=== PATIENT | female | born 1985 ===

== ENCOUNTER 2017-09-23 01:18 | Emergency (ER) | payer MEDICAID ==
[2017-09-23 01:31] VITALS: RESP 17
--- NOTE | 2017-09-23 02:27 | ED PDOC ---
HPI: Female Pain Time Seen by Provider: 09/23/17 01:41 Chief Complaint (Nursing): Female Genitourinary Chief Complaint (Provider): Female Genitourinary History Per: Patient History/Exam Limitations: no limitations Onset/Duration Of Symptoms: Hrs (began Monday morning 09/22) Current Symptoms Are (Timing): Still Present Associated Symptoms: Nausea. denies: Fever, Vomiting, Urinary Symptoms Additional Complaint(s): 32 y/o female presents to the ED for evaluation of LLQ abdominal pain. Patient began to feel this pain this morning and when she attended the movies this evening, she went to use the toilet and upon wiping noticed an orange/red color on toilet paper prompting concern for vaginal bleeding. She is complaining of nausea that also began an hour prior to arrival in ED. Patient took at home test that came back positive this morning. She denies any fever, travel, chest pain, SOB, cough, vomiting, or urinary symptoms. P: 4 A:1. Patient states she has not had any care for this . LMP:08/22/2017 PMD:None provided Past Medical History Vital Signs: Last Vital Signs Temp 98 F 09/23/17 01:28 Pulse 80 09/23/17 01:28 Resp 17 09/23/17 01:28 BP 116/74 09/23/17 01:28 Pulse Ox 96 09/23/17 01:28 - Medical History PMH: Anxiety, Depression - Surgical History Other surgeries: Gastric Bypass - Family History Family History: States: Unknown Family Hx - Social History Current smoker - smoking cessation education provided: Yes (12 cigarettes per day) Alcohol: None Drugs: Denies - Home Medications Home Medications: Ambulatory Orders Medication Instructions Recorded Oseltamivir [Tamiflu] 75 mg PO BID #10 cap 06/28/17 21/Iron Fu/Folic Acid 1 each PO DAILY #30 tablet 09/23/17 [ Complete Caplet] - Allergies Allergies/Adverse Reactions: Allergies Allergy/AdvReac Type Severity Reaction Status Date / Time No Known Allergies Allergy Verified 09/23/17 01:28 Review of Systems ROS Statement: Except As Marked, All Systems Reviewed And Found Negative Constitutional: Negative for: Fever Gastrointestinal: Positive for: Nausea, Abdominal Pain (LLQ). Negative for: Vomiting Genitourinary Female: Positive for: Vaginal Bleeding. Negative for: Other ( urinary symptoms) Physical Exam - Reviewed Nursing Documentation Reviewed: Yes Vital Signs Reviewed: Yes - Physical Exam Appears: Positive for: Well, Non-toxic, No Acute Distress Head Exam: Positive for: ATRAUMATIC, NORMOCEPHALIC Skin: Positive for: Normal Color, Warm, Dry Eye Exam: Positive for: EOMI, PERRL ENT: Positive for: Other (Mucus membranes moist. Airway patent, (-) stridor) Neck: Positive for: Painless ROM, Supple Cardiovascular/Chest: Positive for: Regular Rate, Rhythm. Negative for: Murmur Respiratory: Positive for: Normal Breath Sounds. Negative for: Decreased Breath Sounds, Accessory Muscle Use, Respiratory Distress Gastrointestinal/Abdominal: Positive for: Soft, Tenderness (mild tenderness to LLQ and suprapubic region). Negative for: Mass, Distended, Guarding, Rebound Back: Negative for: L CVA Tenderness, R CVA Tenderness, Vertebral Tenderness Extremity: Positive for: Normal ROM. Negative for: Pedal Edema, Calf Tenderness , Deformity, Swelling Neurologic/Psych: Positive for: Alert, Oriented (x3), Gait (steady in ED). Negative for: Motor/Sensory Deficits - Laboratory Results Result Diagrams: 09/23/17 02:30 09/23/17 02:30 Urine POC: Positive Urine dip results: Positive for: Leukocyte Esterase (trace), Ketones (trace). Negative for: Blood, Nitrate, Glucose, Bilirubin, Protein - ECG O2 Sat by Pulse Oximetry: 96 (RA) Pulse Ox Interpretation: Normal Medical Decision Making Medical Decision Making: Time: 01:28 Impression: Abdominal pain in first trimester, concern for vaginal bleeding in Initial Plan: * Bloody type and screen * BETA-HCG Test * IV access * CMP * UDip * Test * CBC * Tylenol 650 mg PO * Zofran 4 mg PO 0250 Udip reviewed and grossly unremarkable. Patient with persistent abdominal pain on re-examination. Transvaginal U/S ordered. Beta Quant: 58.31 0530 Patient in U/S. 0700 U/S reviewed, radiology report follows EXAM: US , Transvaginal CLINICAL HISTORY: 32 years old, female; Pain; Pelvic pain; Additional info: Abdominal pain, TECHNIQUE: Real-time transvaginal obstetrical ultrasound of the maternal pelvis and a first trimester with image documentation. Transvaginal imaging was used for better evaluation of the fetus and adnexa. COMPARISON: No relevant prior studies available. FINDINGS: Gestation: No intrauterine gestational sac. Uterus/cervix: Endometrium: 1.5 cm in thickness. Closed cervix. Ovaries: LEFT ovary: 2.7 x 2.6 x 2.1 cm hypoechoic lesion with thick septations. LEFT ovary: 2.2 x 1.5 x 2.2 cm anechoic lesion. RIGHT ovary: 1.0 x 1.0 x 1.0 cm thick walled hypoechoic lesion. No definite adnexal masses.. Free fluid: Small free fluid within pelvis. IMPRESSION: 1. No intrauterine gestation. DDX: Early IUP, missed , ectopic . 2. Right ovarian lesion, nonspecific. DDX: Corpus luteal cyst, intraovarian ectopic . Clinical correlation and follow up are recommended. 3. Probable complex LEFT ovarian cyst. 4. Simple left ovarian cyst. Thank you for allowing us to participate in the care of your patient. Dictated and Authenticated by: Jean-Pierre Mata MD 09/23/2017 7:06 AM Eastern Time ([place] & [place]) 0710 On exam, patient remains AAOx3, in no acute distress. Lungs clear to auscultation, cardiac RRR, abdomen soft, non-tender, repeat neuro exam shows no focal findings. VSS. Repeat HR: 79 Repeat BP: 120/71. Lab/Diagnostic results d/w the patient in great detail. Diagnosis of abdominal pain in first trimester d/w the patient. Based on history, exam and diagnostic results, plan will be for outpatient follow up. Advised repeat beta quant and U/S evaluation within 5-7 days. Patient instructed to follow-up with pmd / referral provided / the clinic in 1- 2 days without fail. Advised to take medication as prescribed. Return to the emergency room at any time for any new or worsening symptoms. Patient states she fully agrees with and understands discharge instructions. States that she agrees with the plan and disposition. Verbalized and repeated discharge instructions and plan. I have given the patient opportunity to ask any additional questions. Scribe Attestation: Documented by Janelle Denis acting as a scribe for Christina Urbano PA-C. MD Scribbelle Attestation: All medical record entries made by the Scribe were at my direction and personally dictated by me. I have reviewed the chart and agree that the record accurately reflects my personal performance of the history, physical exam, medical decision making, and the department course for this patient. I have also personally directed, reviewed, and agree with the discharge instructions and disposition. Disposition - Clinical Impression Clinical Impression: Abdominal pain affecting - Patient ED Disposition Is Patient to be Admitted: No Counseled Patient/Family Regarding: Studies Performed, Diagnosis, Need For Followup, Rx Given - Disposition Disposition: Routine/Home Disposition Time: 07:00 Condition: STABLE Additional Instructions: FOLLOW UP WITH OBGYN WITHIN 1-2 DAYS FOR FURTHER EVALUATION. REPEAT BETA QUANT AND U/S EVALUATION RECOMMENDED WITHIN THE WEEK. RETURN TO ED WITH ANY NEW OR WORSENING SYMPTOMS. Prescriptions: 21/Iron Fu/Folic Acid [ Complete Caplet] 1 each PO DAILY #30 tablet Instructions: Acute Abdomen (Belly Pain), Adult (DC), Care, - The First Month, - The Second Month Forms: [employer] ([place]) Print Language: DIVEHI - POA Present On Arrival: None Results - Lab Results Lab Results: 09/23/17 09/23/17 09/23/17 02:30 02:30 02:23 WBC 9.0 RBC 4.48 Hgb 9.5 L Hct 30.5 L MCV 68.2 L MCH 21.3 L MCHC 31.2 L RDW 19.4 H Plt Count 258 MPV 7.8 Neut % (Auto) 66.3 Lymph % (Auto) 23.4 Hoke % (Auto) 5.2 Eos % (Auto) 4.0 Baso % (Auto) 1.1 Neut # (Auto) 5.9 Lymph # (Auto) 2.1 [place] # (Auto) 0.5 Eos # (Auto) 0.4 Baso # (Auto) 0.1 Sodium 136 Potassium 4.1 Chloride 101 Carbon Dioxide 19 L Anion Gap 20 BUN 8 Creatinine 0.6 L Est GFR ( Amer) > 60 Est GFR (Non-Af Amer) > 60 Random Glucose 92 Calcium 8.6 Total Bilirubin 0.3 AST 28 ALT 19 Alkaline Phosphatase 82 Total Protein 7.1 Albumin 4.0 Globulin 3.1 Albumin/Globulin Ratio 1.3 Beta HCG, Quant 58.31 Blood Type O POSITIVE Antibody Screen Negative BBK History Checked No verified bt
[2017-09-23 02:41] LABS: BASO # 0.1 K/uL (0.0-0.2); BASO % 1.1 % (0.0-2.0); EOS # 0.4 K/uL (0.0-0.7); HEMOGLOBIN 9.5 g/dL (12.0-16.0); LYMPH # 2.1 K/uL (1.0-4.3); LYMPH % 23.4 % (20.0-40.0); MEAN CELL VOLUME 68.2 fl (81.0-99.0); MEAN CORPUSCULAR HEMOGLOBIN 21.3 pg (27.0-31.0); MEAN CORPUSCULAR HGB CONC 31.2 g/dL (33.0-37.0); MEAN PLATELET VOLUME 7.8 fl (7.2-11.7); MONO # 0.5 K/uL (0.0-0.8); MONO % 5.2 % (0.0-10.0); NEUT # 5.9 K/uL (1.8-7.0); NEUT % 66.3 % (50.0-75.0); NRBC % 0.1 % (0.0-0.0); RBC 4.48 Mil/uL (3.80-5.20); RED CELL DISTRIBUTION WIDTH 19.4 % (11.5-14.5)
[2017-09-23 02:42] LABS: ALB/GLOB RATIO 1.3 (1.0-2.1); ALT/SGPT 19 U/L (9-52); AST/SGOT 28 U/L (14-36); BLOOD UREA NITROGEN 8 mg/dl (7-17); CALCIUM 8.6 mg/dL (8.4-10.2); GFR AFRICAN-AMERICAN > 60; GFR NON-AFRICAN AMERICAN > 60
--- NOTE | 2017-09-23 07:07 | US ---
EXAM: US , Transvaginal CLINICAL HISTORY: 32 years old, female; Pain; Pelvic pain; Additional info: Abdominal pain, TECHNIQUE: Real-time transvaginal obstetrical ultrasound of the maternal pelvis and a first trimester with image documentation. Transvaginal imaging was used for better evaluation of the fetus and adnexa. COMPARISON: No relevant prior studies available. FINDINGS: Gestation: No intrauterine gestational sac. Uterus/cervix: Endometrium: 1.5 cm in thickness. Closed cervix. Ovaries: LEFT ovary: 2.7 x 2.6 x 2.1 cm hypoechoic lesion with thick septations. LEFT ovary: 2.2 x 1.5 x 2.2 cm anechoic lesion. RIGHT ovary: 1.0 x 1.0 x 1.0 cm thick walled hypoechoic lesion. No definite adnexal masses.. Free fluid: Small free fluid within pelvis. IMPRESSION: 1. No intrauterine gestation. DDX: Early IUP, missed , ectopic . 2. Right ovarian lesion, nonspecific. DDX: Corpus luteal cyst, intraovarian ectopic . Clinical correlation and follow up are recommended. 3. Probable complex LEFT ovarian cyst. 4. Simple left ovarian cyst.
[2017-09-23 07:20] VITALS: BP 120/71; PULSE 79; TEMP 98.2
[2017-09-24 06:31] VITALS: O2SAT 96
== END 2017-09-23 07:18 | disposition home or self-care (01) ==
LOC: H.ER 01:18
DX: O26.899 Other specified pregnancy related conditions, unspecified trimester (principal)

== ENCOUNTER 2017-10-11 16:39 | Emergency (ER) | payer MEDICAID ==
[2017-10-11 16:51] VITALS: TEMP 98.5
[2017-10-11] MEDS ORDERED: Sodium Chloride 0.9% 1,000 ML IV STA (17:32)
--- NOTE | 2017-10-11 17:39 | ED PDOC ---
HPI: Female Pain Time Seen by Provider: 10/11/17 16:52 Chief Complaint (Nursing): Female Genitourinary Chief Complaint (Provider): Vaginal bleeding History Per: Patient History/Exam Limitations: no limitations Onset/Duration Of Symptoms: Days (today) Current Symptoms Are (Timing): Still Present Severity: None Additional Complaint(s): Pt. with spotting and pelvic cramps. No dysuria, chest pain dyspnea, numbness, tingles, incontinence, constipation. Has low back pain same as her usual sciatica. No new pain or injury. Is preg 8 wks. Past Medical History Reviewed: Nursing Documentation, Vital Signs Vital Signs: Last Vital Signs Temp 98.5 F 10/11/17 16:48 Pulse 82 10/11/17 16:48 Resp 16 10/11/17 16:48 BP 130/84 10/11/17 16:48 Pulse Ox 100 10/11/17 16:48 - Medical History PMH: Anxiety, Depression - Family History Family History: States: Unknown Family Hx - Living Arrangements Living Arrangements: With Family - Immunization History Hx Tetanus Toxoid Vaccination: Yes Hx Influenza Vaccination: No Hx Pneumococcal Vaccination: No - Home Medications Home Medications: Ambulatory Orders Medication Instructions Recorded Oseltamivir [Tamiflu] 75 mg PO BID #10 cap 06/28/17 21/Iron Fu/Folic Acid 1 each PO DAILY #30 tablet 09/23/17 [ Complete Caplet] Nitrofurantoin Macrocrystals 100 mg PO BID #10 cap 10/11/17 [Macrobid] - Allergies Allergies/Adverse Reactions: Allergies Allergy/AdvReac Type Severity Reaction Status Date / Time lactose Allergy RASH Verified 10/11/17 16:46 latex Allergy RASH Verified 10/11/17 16:46 Review of Systems ROS Statement: Except As Marked, All Systems Reviewed And Found Negative Genitourinary Female: Positive for: Vaginal Bleeding, Pelvic Pain Musculoskeletal: Positive for: Back Pain Physical Exam - Reviewed Nursing Documentation Reviewed: Yes Vital Signs Reviewed: Yes - Physical Exam Appears: Positive for: Non-toxic, No Acute Distress Head Exam: Positive for: ATRAUMATIC, NORMAL INSPECTION, NORMOCEPHALIC Skin: Positive for: Normal Color, Warm, DRY Eye Exam: Positive for: EOMI, Normal appearance, PERRL ENT: Positive for: Normal ENT Inspection Neck: Positive for: Normal, Painless ROM Cardiovascular/Chest: Positive for: Regular Rate, Rhythm Respiratory: Positive for: CNT, Normal Breath Sounds Gastrointestinal/Abdominal: Positive for: Soft, Tenderness (across lower pelvis) Back: Positive for: Normal Inspection. Negative for: L CVA Tenderness, R CVA Tenderness Extremity: Positive for: Normal ROM. Negative for: Tenderness, Pedal Edema Neurologic/Psych: Positive for: Alert, Oriented - Laboratory Results Result Diagrams: 10/11/17 17:20 10/11/17 17:20 Interpretation Of Abn Labs: urine wbc - ECG O2 Sat by Pulse Oximetry: 100 - CT Scan/US US Other Rad Studies (CT/US): Read By Radiologist Other Rad Interpretation: IUP - Progress ED Course And Treament: 1845: Stable. AAOx3. Pain free. Fu with pcp. Disposition - Clinical Impression Clinical Impression: Threatened , Urinary tract infection - Patient ED Disposition Is Patient to be Admitted: No Counseled Patient/Family Regarding: Studies Performed, Diagnosis, Need For Followup - Disposition [facility] - 10[facility]12[facility]17 Disposition: Routine/Home Disposition Time: 18:46 Condition: STABLE Additional Instructions: Return if not better in 3 days. Prescriptions: Nitrofurantoin Macrocrystals [Macrobid] 100 mg PO BID #10 cap Instructions: Threatened Miscarriage, Urinary Tract Infections in Adults Forms: [facility] ([place]), [facility] ED School/Work Excuse
[2017-10-11 17:48] LABS: BASO # 0.1 K/uL (0.0-0.2); BASO % 0.6 % (0.0-2.0); EOS # 0.2 K/uL (0.0-0.7); EOS % 1.6 % (0.0-4.0); LYMPH # 1.7 K/uL (1.0-4.3); LYMPH % 14.9 % (20.0-40.0); MEAN CELL VOLUME 68.9 fl (81.0-99.0); MEAN CORPUSCULAR HEMOGLOBIN 21.5 pg (27.0-31.0); MEAN CORPUSCULAR HGB CONC 31.3 g/dL (33.0-37.0); MEAN PLATELET VOLUME 8.7 fl (7.2-11.7); MONO # 0.7 K/uL (0.0-0.8); MONO % 5.9 % (0.0-10.0); NEUT # 8.9 K/uL (1.8-7.0); RBC 4.63 Mil/uL (3.80-5.20); RED CELL DISTRIBUTION WIDTH 20.3 % (11.5-14.5); WHITE BLOOD COUNT 11.6 K/uL (4.8-10.8)
[2017-10-11 18:16] LABS: SQUAMOUS EPITHIAL 3 /hpf (0-5); URINE BACTERIA FEW (<OCC); URINE BILIRUBIN NEGATIVE (NEGATIVE); URINE BLOOD MODERATE (NEGATIVE); URINE CLARITY CLOUDY (Clear); URINE COLOR YELLOW (YELLOW); URINE GLUCOSE (UA) NEG (Normal); URINE LEUKOCYTE ESTERASE MOD Leu/uL (Negative); URINE PROTEIN NEGATIVE (NEGATIVE); URINE UROBILINOGEN 0.2-1.0 mg/dL (0.2-1.0)
[2017-10-11 18:19] LABS: ALB/GLOB RATIO 1.2 (1.0-2.1); ALBUMIN 4.1 g/dL (3.5-5.0); ALT/SGPT 28 U/L (9-52); AST/SGOT 38 U/L (14-36); BLOOD UREA NITROGEN 8 mg/dl (7-17); CALCIUM 9.1 mg/dL (8.4-10.2); GFR AFRICAN-AMERICAN > 60; GFR NON-AFRICAN AMERICAN > 60
--- NOTE | 2017-10-11 18:36 | US ---
PROCEDURE: OB Pelvic Ultrasound HISTORY: preg and pain COMPARISON: None available. FINDINGS: UTERUS: Intrauterine cystic structure, 3 mm. Out of range for determination of age. Possible early intrauterine gestation. Correlate with repeat transvaginal pelvic ultrasound and serial beta HCG. Uterus measures cm. No mass CERVIX: Long and closed. No cervical abnormality seen. RIGHT OVARY: Measures 2.3 x 0.7 x 2.1 cm. No mass. Normal flow. LEFT OVARY: Measures 4.2 x 2.7 x 3.5 cm. No mass. Normal flow. Simple cyst, 2.9 x 2.3 x 3.3 cm. FREE FLUID: None. OTHER FINDINGS: 3 mm intrauterine cystic structure common nonspecific. Possible early intrauterine gestation. Followup with transvaginal pelvic ultrasound and serial beta HCG advised. IMPRESSION: Single live intrauterine gestation - Findings.
[2017-10-11 18:55] VITALS: BP 122/82; PULSE 74; RESP 19; O2SAT 99
== END 2017-10-11 18:57 | disposition home or self-care (01) ==
LOC: H.ER 16:39
DX: O23.41 Unspecified infection of urinary tract in pregnancy, first trimester (principal); O20.0 Threatened abortion; Z86.59 Personal history of other mental and behavioral disorders; Z3A.08 8 weeks gestation of pregnancy
CPT/HCPCS: 76817; 80053; 81003; 81025; 84702; 85025; 87086; 87181; 96360; 99284; J7040